=== PATIENT | female | born 1980 | race Caucasian/White ===

== ENCOUNTER → 2016-12-22 | Outpatient (CLI) | payer MEDICAID ==
[~2016-12-22] MED LIST: ACET-76 PO
[2016-12-22 15:45] LABS: BLOOD UREA NITROGEN 13 mg/dL (7-18)
[2016-12-22 15:48] LABS: ASPARTATE AMINO TRANSFERASE 37 U/L (15-37)
== END | disposition home or self-care (01) ==
LOC: STAR 13:53
PROVIDERS: ATTEND Orthopaedic Surgery Adult Reconstructive Orthopaedic Surgery
DX: Z01.818 Encounter for other preprocedural examination (principal); Q65.89 Other specified congenital deformities of hip; M25.552 Pain in left hip; M54.5 Low back pain; R79.1 Abnormal coagulation profile
CPT/HCPCS: 36415; 80053; 81003; 85025; 85610; 85730; 87081; 87147; 93005

== ENCOUNTER 2017-01-02 07:41 | Inpatient (IN) | payer MEDICAID ==
[~2017-01-02] VITALS: Ht 152.4 cm; Wt 96.0 kg
[~2017-01-02 07:41] MED LIST changes: +TRANEXAMIC ACID 100 MG/ML, 10ML ONE; +VANCOMYCIN 1,000 MG ONE
[2017-01-02] MEDS ORDERED: LACTATED RINGERS 1,000 ML IV SCH (08:27)
[2017-01-02] MEDS ORDERED: VANCOMYCIN PER PHARMACY MC PRN (08:30)
[2017-01-02 08:36] LABS: HCG UR OBC PASS
[2017-01-02 08:46] VITALS: BP 130/86
[2017-01-02] MEDS ORDERED: FENTANYL PF 250 MCG/5ML ONE (08:58)
[2017-01-02] MEDS ORDERED: VANCOMYCIN 2,000 MG in SODIUM CHLORIDE 0.9% 500 ML IV ONE (09:00)
[2017-01-02] MEDS ORDERED: HYDROmorphone 1 MG/ML, 1ML ONE ×2 (09:22→10:18)
[2017-01-02] MEDS ORDERED: OXYcodone 5 MG/5 ML ORAL.SOL UDC PO PRN (10:00)
[2017-01-02] MEDS ORDERED: ONDANSETRON 2MG/ML, 2ML IVPush PRN (10:00)
[2017-01-02] MEDS ORDERED: MEPERIDINE/PF 25MG/0.5ML IVPush PRN (10:00)
[2017-01-02] MEDS ORDERED: hydrALAzine 20 MG/ML, 1ML IV PRN (10:00)
[2017-01-02] MEDS ORDERED: ACETAMINOPHEN 325 MG TABLET PO PRN (10:00)
[2017-01-02] MEDS ORDERED: LABETALOL 5MG/ML, 20ML IV PRN (10:00)
[2017-01-02] MEDS ORDERED: HYDROmorphone 1 MG/ML, 1ML IV PRN (10:00)
[2017-01-02] MEDS ORDERED: ACETAMINOPHEN 325 MG/10.15 ML UDC ONE (10:58)
[2017-01-02] MEDS ORDERED: ACETAMINOPHEN 650 MG/20.3 ML UDC ONE (10:58)
[2017-01-02] MEDS ORDERED: MIDAZOLAM 1 MG/ML, 2ML ONE (10:59)
[2017-01-02] MEDS ORDERED: FENTANYL PF 100 MCG/2ML ONE (10:59)
[2017-01-02] MEDS ORDERED: OXYcodone 5 MG/5 ML ORAL.SOL UDC ONE (10:59)
[2017-01-02] MEDS ORDERED: ONDANSETRON 4 MG TABLET PO PRN (11:00)
[2017-01-02] MEDS ORDERED: DIAZEPAM 5 MG TABLET PO PRN (11:00)
[2017-01-02] MEDS ORDERED: PROMETHAZINE 25 MG/ML, 1ML IM PRN (11:00)
[2017-01-02] MEDS ORDERED: DIPHENHYDRAMINE 50 MG CAPSULE PO PRN (11:00)
[2017-01-02] MEDS ORDERED: BISACODYL 10 MG SUPP PR PRN (11:00)
[2017-01-02] MEDS ORDERED: ONDANSETRON 2MG/ML, 2ML IV PRN (11:00)
[2017-01-02] MEDS ORDERED: ALUMINUM/MAG/SIMETHICONE 30 ML UDC PO PRN (11:00)
[2017-01-02] MEDS ORDERED: MAGNESIUM HYDROXIDE 8%, 30ML UDC PO PRN (11:00)
[2017-01-02] MEDS ORDERED: ZOLPIDEM 5MG TABLET PO PRN (11:00)
[2017-01-02] MEDS ORDERED: SCOPOLAMINE PATCH, 1.5MG PATCH.TD72 TD SCH (11:00)
[2017-01-02] MEDS ORDERED: PROMETHAZINE 12.5 MG SUPP PR PRN (11:00)
[2017-01-02] MEDS ORDERED: SENNA/DOCUSATE TABLET PO PRN (11:00)
[2017-01-02] MEDS: FENTANYL PF 100 MCG/2ML IV PRN ×3 (11:04→11:44)
[2017-01-02] MEDS: MIDAZOLAM 1 MG/ML, 2ML IV PRN ×3 (11:05→11:45)
[2017-01-02] MEDS ORDERED: TRANEXAMIC ACID 1,000 MG in SODIUM CHLORIDE 0.9% 100 ML IVPB ONE (11:30)
[2017-01-02] MEDS ORDERED: DIAZEPAM 5 MG/ML, 2ML ONE (11:34)
[2017-01-02] MEDS ORDERED: DIAZEPAM 5 MG/ML, 10ML VIAL IV ONE (12:00)
[2017-01-02] MEDS ORDERED: MEPERIDINE/PF 25MG/0.5ML ONE (12:06)
[2017-01-02 13:00] VITALS: BP 164/100
[2017-01-02] MEDS: HYDROmorphone 1 MG/ML, 1ML IV PRN ×2 (13:27→15:39)
[2017-01-02] MEDS: ACETAMINOPHEN 325 MG TABLET PO SCH ×2 (14:04→20:18)
[2017-01-02] MEDS: TAMSULOSIN 0.4 MG CAP.ER.24H PO SCH (14:04)
[2017-01-02] MEDS ORDERED: PROPOFOL 10 MG/ML, 20ML ONE (15:52)
[2017-01-02] MEDS ORDERED: DEXAMETHASONE 4 MG/ML, 5ML ONE (15:52)
[2017-01-02] MEDS ORDERED: NEOSTIGMINE 1 MG/ML, 10ML ONE (15:52)
[2017-01-02] MEDS ORDERED: CEFAZOLIN 1,000 MG ONE (15:52)
[2017-01-02] MEDS ORDERED: KETOROLAC 30 MG/1 ML ONE (15:52)
[2017-01-02] MEDS ORDERED: GLYCOPYRROLATE 0.2MG/1ML ONE (15:52)
[2017-01-02] MEDS ORDERED: ROCURONIUM 10 MG/ML ONE (15:52)
[2017-01-02] MEDS ORDERED: SUCCINYLCHOLINE 20 MG/ML, 10ML ONE (15:52)
[2017-01-02] MEDS ORDERED: ONDANSETRON 2MG/ML, 2ML ONE (15:52)
[2017-01-02] MEDS: D5%-0.45NACL+KCL 20MEQ 1,000 ML IV SCH (16:39)
[2017-01-02] MEDS: CEFAZOLIN PMX 2GM/50ML 50 ML IVPB SCH (16:39)
[2017-01-02 18:22] VITALS: BP 110/76
[2017-01-02] MEDS: ASPIRIN 81 MG TABLET EC PO SCH (20:17)
[2017-01-02] MEDS: OXYcodone IR 5MG TABLET PO PRN (20:18)
[2017-01-02] MEDS: DOCUSATE 100 MG CAPSULE PO SCH (20:18)
[2017-01-03] MEDS: CEFAZOLIN PMX 2GM/50ML 50 ML IVPB SCH (00:34)
[2017-01-03] MEDS: OXYcodone IR 5MG TABLET PO PRN ×2 (00:34→08:45)
[2017-01-03] MEDS: D5%-0.45NACL+KCL 20MEQ 1,000 ML IV SCH ×2 (01:30→09:30)
[2017-01-03 01:38] VITALS: BP 99/65
[2017-01-03] MEDS: ACETAMINOPHEN 325 MG TABLET PO SCH ×2 (01:44→08:46)
[2017-01-03] MEDS: ASPIRIN 81 MG TABLET EC PO SCH (05:58)
[2017-01-03] MEDS ORDERED: DEXAMETHASONE 4 MG/ML, 1ML IVPush SCH (06:00)
[2017-01-03 08:31] VITALS: BP 148/84
[2017-01-03] MEDS: TAMSULOSIN 0.4 MG CAP.ER.24H PO SCH (08:45)
[2017-01-03] MEDS: DOCUSATE 100 MG CAPSULE PO SCH (08:45)
[2017-01-03] MEDS ORDERED: MULTIVITAMINS/MINERALS TABLET PO SCH (09:00)
[2017-01-03] MEDS ORDERED: PNEUMOCOCCAL 23 VACCINE IM-VACC ONE (09:00)
[2017-01-03] MEDS ORDERED: KETOROLAC 30 MG/1 ML IV SCH (11:00)
[2017-01-03] MEDS ORDERED: OXYC5TAB3 PO (12:12)
[2017-01-03] MEDS ORDERED: ONDA4TAB7 PO (12:14)
[2017-01-03] MEDS ORDERED: ASPI-496 PO (12:15)
[2017-01-03] MEDS ORDERED: DOCU-30 PO (12:15)
== END 2017-01-03 12:25 | disposition home or self-care (01) | DRG 470 ==
LOC: ORIP 07:41 → 4NOR 12:52 → DCLOUNGE 01-03 11:40
PROVIDERS: ADMIT Orthopaedic Surgery Adult Reconstructive Orthopaedic Surgery; ATTEND Orthopaedic Surgery Adult Reconstructive Orthopaedic Surgery
PROC: 0SRB04A Replacement of Left Hip Joint with Ceramic on Polyethylene Synthetic Substitute, Uncemented, Open Approach (ICD-10-PCS; principal; 2017-01-02 09:30)
DX: M16.12 Unilateral primary osteoarthritis, left hip (principal); Q65.89 Other specified congenital deformities of hip
CPT/HCPCS: 36415; 72170; 81025; 86850; 86900; 90732; J0690; J1100; J1170; J1885; J2175; J2250; J2405; J2704; J2710; J3010; J3360; J3370; J3490; J0330; J3480; J7040; J7120